=== PATIENT | male | born 1940 | race Two or more races ===

== ENCOUNTER 2017-03-15 16:41 | Emergency (ER) | payer MEDICARE ==
[2017-03-15 16:54] VITALS: BP 144/79
--- NOTE | 2017-03-15 17:06 | UC ---
Dizzy HPI HPI Summary: 76 year old with hypertension and history of stroke presents with dizzyness. He has stopped his medications recently due to cost . - History Of Current Complaint Chief Complaint: UCDizziness Stated Complaint: DIZZY/HEADACHE/NECK PAIN HX STROKE Time Seen by Provider: 03/15/17 16:55 Hx Obtained From: Patient, Family/Stroboscope Operator - Allergies/Home Medications Allergies/Adverse Reactions: Allergies Allergy/AdvReac Type Severity Reaction Status Date / Time No Known Allergies Allergy Verified 03/15/17 16:47 Home Medications: Home Medications NK [No Home Medications Reported] 03/15/17 [History Confirmed 03/15/17] PMH/Surg Hx/FS Hx/Imm Hx Previously Healthy: Yes Cardiovascular History: Cardiac Disease, Hypertension - Surgical History Surgical History: None - Social History Occupation: Unemployed Lives: With Family Alcohol Use: None Substance Use Type: None Smoking Status (MU): Never Smoked Tobacco - Immunization History Most Recent Influenza Vaccination: no Review of Systems Neurological: Headache, Weakness All Other Systems Reviewed And Are Negative: Yes Physical Exam Triage Information Reviewed: Yes Appearance: Well-Appearing, No Pain Distress, Well-Nourished Vital Signs: Initial Vital Signs Temp 98.2 F 03/15/17 16:45 Pulse 77 03/15/17 16:45 Resp 18 03/15/17 16:45 BP 144/79 03/15/17 16:45 Pulse Ox 99 03/15/17 16:45 Vital Signs Reviewed: Yes Eye Exam: Normal ENT Exam: Normal Dental Exam: Normal Neck exam: Normal Neck: Positive: 1 Respiratory Exam: Normal Cardiovascular Exam: Normal Abdominal Exam: Normal Musculoskeletal Exam: Normal Neurological Exam: Normal Psychological Exam: Normal Skin Exam: Normal Dizzy Course/Dx - Course Course Of Treatment: Needs higher level of care and social work. Spoke with Dr Small at 1720. Declined ambulance. No neuro red flags. will drive to [place] - Differential Dx/Diagnosis Provider Diagnoses: Dizziness with history of stroke Discharge - Discharge Plan Condition: Fair Disposition: OTHER Discharge Disposition Comment: to [place] ED Patient Education Materials: Dizziness (ED) Additional Instructions: TO go to [place] ED immediately
== END 2017-03-15 17:20 ==
LOC: UCCORT 16:41
DX: R42 Dizziness and giddiness (principal); Z86.73 Personal history of transient ischemic attack (TIA), and cerebral infarction without residual deficits
CPT/HCPCS: 99201; G0463

== ENCOUNTER 2018-03-18 18:56 | Emergency (ER) | payer MEDICARE ==
[2018-03-18 19:27] VITALS: BP 184/93
--- NOTE | 2018-03-18 19:30 | ED ---
Headache - HPI Summary HPI Summary: 77 yr old male with the complaint of woke up in the morning at 6 am, he felt a little dizzy, posterior neck and head pain, He then fell landing on his left elbow due to tripping on rug. He has had continued posterior neck pain and headache since 6 am. He at times has felt a little dizzy. He denies CP, SOB. Denies change in vision, speech, hearing, swallowing, denies focal weakness, numbness. Denies trouble walking. He denies head trauma or hitting head or neck. He states he is concerned about another stroke. - History Of Current Complaint Chief Complaint: UCHeadache Stated Complaint: PAIN BACK OF HEAD/HX STROKE Time Seen by Provider: 03/18/18 19:17 - Allergies/Home Medications Allergies/Adverse Reactions: Allergies Allergy/AdvReac Type Severity Reaction Status Date / Time No Known Allergies Allergy Verified 03/15/17 16:47 Home Medications: Home Medications Amiodarone HCl [Amiodarone HCl-] 100 mg PO DAILY 03/18/18 [History Confirmed ] Aspirin 81 mg CHEW TAB* [Aspirin Low Dose TAB*] 81 mg PO DAILY 03/18/18 [ History Confirmed 03/18/18] Atorvastatin* [Lipitor*] 10 mg PO DAILY 03/18/18 [History Confirmed 03/18/18] Lisinopril TAB* [Prinivil TAB*] 5 mg PO DAILY 03/18/18 [History Confirmed ] PMH/Surg Hx/FS Hx/Imm Hx Cardiovascular History: Reports: Hx Hypertension - Surgical History Surgery Procedure, Year, and Place: HERNIA REPAIR Infectious Disease History: No Infectious Disease History: Denies: Traveled Outside the [place] in Last 30 Days - Family History Known Family History: Positive: Other - hypertension - Social History Alcohol Use: None Substance Use Type: Reports: None Smoking Status (MU): Former Smoker Type: Cigarettes Review of Systems Constitutional: Negative Positive: Other - dizziness Positive: Headache All Other Systems Reviewed And Are Negative: Yes Physical Exam Triage Information Reviewed: Yes Vital Signs On Initial Exam: Initial Vitals Temp Pulse Resp BP Pulse Ox 98.3 F 67 20 184/93 100 03/18/18 19:07 03/18/18 19:07 03/18/18 19:07 03/18/18 19:07 03/18/18 19:07 Vital Signs Reviewed: Yes Appearance: Positive: Well-Appearing, No Pain Distress Skin: Positive: Warm, Skin Color Reflects Adequate Perfusion Head/Face: Positive: Normal Head/Face Inspection. Negative: Cephalohematoma Eyes: Positive: EOMI, BLANCA ENT: Positive: Normal ENT inspection Neck: Positive: Supple, Nontender Respiratory/Lung Sounds: Positive: Clear to Auscultation, Breath Sounds Present Cardiovascular: Positive: RRR. Negative: Murmur Abdomen Description: Positive: Nontender Musculoskeletal: Positive: Strength/ROM Intact, Other - small bruise lateral left elbow. Neurological: Positive: Sensory/Motor Intact, Alert, Oriented to Person Place, Time, CN Intact II-III, Normal Gait, Speech Normal - [place] Coma Scale Best Eye Response: 4 - Spontaneous Best Motor Response: 6 - Obeys Commands Best Verbal Response: 5 - Oriented Coma Scale Total: 15 Diagnostics - Vital Signs Vital Signs Temp Pulse Resp BP Pulse Ox 03/18/18 19:07 98.3 F 67 20 184/93 100 - Laboratory Lab Statement: Any lab studies that have been ordered have been reviewed, and results considered in the medical decision making process. - EKG 03/18/2018 Cardiac Rate: NL EKG Rhythm: Sinus Rhythm ST Segment: Normal Ectopy: None Headache Course/Dx - Course Course Of Treatment: 77 yr old with headache, neck pain, dizziness since 6 am when woke, up, a fall with elbow contusion. He signed out AMA and refused transfer by ambulance to the hospital. He has no other complaints. - Diagnoses Provider Diagnoses: Headache, Neck pain, Hypertension, Dizziness, Contusion of elbow, left Discharge - Sign-Out/Discharge Documenting (check all that apply): Patient Departure All imaging exams completed and their final reports reviewed: No Studies - Discharge Plan Condition: Good Disposition: AGAINST MEDICAL ADVICE Referrals: No Primary Care Phys,NOPCP [Primary Care Provider] - - Billing Disposition and Condition Condition: GOOD Disposition: Against Medical Advice
== END 2018-03-18 19:30 | disposition left against medical advice (07) ==
LOC: UCCORT 18:56
DX: R51 Headache (principal); M54.2 Cervicalgia; R42 Dizziness and giddiness; S50.02XA Contusion of left elbow, initial encounter; W19.XXXA Unspecified fall, initial encounter; Y93.9 Activity, unspecified; Y92.009 Unspecified place in unspecified non-institutional (private) residence as the place of occurrence of the external cause; I10 Essential (primary) hypertension; Z87.891 Personal history of nicotine dependence
CPT/HCPCS: 99212; G0463